=== PATIENT | male | born 1975 | race Two or more races ===

== ENCOUNTER 2018-07-11 14:07 | Emergency (ER) | payer OTHER ==
[~2018-07-11] VITALS: Ht 177.8 cm; Wt 77.1 kg
[~2018-07-11 14:07] MED LIST: CEFUROXIME500 MG PO; CLONAZEPAM0.5 MG; EFFEXOR XR150 MG; KETO10TA2 PO; MUPIROCIN22 GM TOP
== END 2018-07-11 18:43 | disposition home or self-care (01) ==
LOC: ER 14:07
DX: R06.02 Shortness of breath (principal); R53.1 Weakness; F41.0 Panic disorder [episodic paroxysmal anxiety]

== ENCOUNTER → 2020-07-27 | Outpatient (CLI) | payer OTHER | END | disposition home or self-care (01) | LOC: MRI 08:55 | PROVIDERS: ATTEND Orthopaedic Surgery | DX: M25.561 Pain in right knee (principal); M25.562 Pain in left knee | CPT/HCPCS: 73721 ==